=== PATIENT | female | born 1990 ===

== ENCOUNTER 2020-11-08 04:14 | Day surgery (SDC) | payer BC, OTHER ==
[2020-11-06 16:23] VITALS: BMI 32.8
[2020-11-08] MEDS ORDERED: MIDAZOLAM HCL 2 MG/2 ML SINGLE DOSE VIAL ONE (07:43)
[2020-11-08] MEDS ORDERED: CEFAZOLIN 2 GM/D5W 2 GM/50 ML ML IVPB ONE (08:00)
[2020-11-08] MEDS ORDERED: ceFAZolin SODIUM 1 GM VIAL IVPB ONE (08:18)
[2020-11-08] MEDS ORDERED: PROPOFOL 20 ML ONE ×2 (08:23)
[2020-11-08] MEDS ORDERED: ROCURONIUM BROMIDE 100 MG/10 ML VIAL ONE (08:24)
[2020-11-08] MEDS ORDERED: SUCCINYLCHOLINE CHLORIDE 200 MG/10 ML SYRINGE ONE (08:24)
[2020-11-08] MEDS ORDERED: ONDANSETRON 4 MG/2 ML VIAL ONE (08:31)
[2020-11-08] MEDS ORDERED: ceFAZolin SODIUM 1 GM VIAL ONE (08:31)
[2020-11-08] MEDS ORDERED: DEXAMETHASONE SOD PHOSPHATE 4 MG/1 ML VIAL ONE (08:31)
[2020-11-08] MEDS ORDERED: NEOSTIGMINE METHYLSULFATE 0.5 MG/ML - 10 ML MDV ONE (09:00)
[2020-11-08] MEDS ORDERED: GLYCOPYRROLATE 0.2 MG/1 ML VIAL ONE (09:00)
[2020-11-08] MEDS ORDERED: IBUPROFEN 600 MG TABLET (FP) PO PRN (09:16)
[2020-11-08] MEDS ORDERED: ALBUTEROL SO4 0.083% IH SOL 2.5 MG/3 ML VIAL.NEB. NEB ONE ×3 (09:16→09:26)
[2020-11-08] MEDS ORDERED: IBUPROFEN 800 MG/8 ML IJ IVPB PRN (09:16)
[2020-11-08] MEDS ORDERED: ACETAMINOPHEN 325 MG TABLET (FP) PO PRN (09:16)
[2020-11-08] MEDS ORDERED: ONDANSETRON 4 MG/2 ML VIAL IVPUSH PRN (09:25)
[2020-11-08] MEDS ORDERED: oxyCODONE HCL 5 MG TABLET PO PRN ×2 (09:25→09:27)
[2020-11-08] MEDS ORDERED: LACTATED RINGERS SOLUTION 1,000 ML IV SCH (09:30)
[2020-11-08] MEDS ORDERED: ACETAMINOPHEN INJECTION 100 ML IVPB ONE (09:43)
[2020-11-08] MEDS ORDERED: ACETAMINOPHEN 1000 MG/100 ML VIAL (NON FORMULARY) IVPB ONE ×2 (09:49)
[2020-11-08 11:29] VITALS: BP 121/85; PULSE 70; TEMP 97.8
== END 2020-11-08 12:15 | disposition home or self-care (01) ==
LOC: JASU-SURG 04:14
PROVIDERS: ATTEND Obstetrics & Gynecology
PROC: 0UB74ZZ Excision of Bilateral Fallopian Tubes, Percutaneous Endoscopic Approach (ICD-10-PCS; principal; 2020-11-08 08:00)
DX: Z30.2 Encounter for sterilization (principal)
CPT/HCPCS: 86850; 86900; 86901; 94760; J0131